=== PATIENT | male | born 1995 | race Caucasian/White ===

== ENCOUNTER 2024-03-12 18:15 | Emergency (ER) | payer BC, SELFPAY ==
--- NOTE | ~2024-03-12 | CT_ITS ---
CLINICAL INDICATION: Abdominal pain, hernia suspected clinically COMPARISON: None. TECHNIQUE: Multiple contiguous axial images of the abdomen and pelvis were performed following the ad ministration of with 100 mL Omnipaque-350 intravenous contrast The dose-length product (DLP) was 196.63 mGy-cm. Automated exposure control and iterative reconstruction technique were employed. FINDINGS/OBSERVATIONS: Visualized lower thorax: The bilateral lung bases are clear. The heart is of normal size, without pericardial effusion. Liver: Liver enhances homogeneously and is not enlarged measuring 18 cm in longitudinal dimension. Gallbladder and biliary system: The gallbladder is only minimally distended, and otherwise unremarkable. Pancreas: The pancreas enhances homogeneously without ductal dilatation. Spleen: A well-circumscribed focus of fluid attenuation is identified within the anterior body of the spleen measuring 5.1 x 5.3 x 5.3 cm, consistent with a splenic cyst. The remainder of the spleen otherwise enhances homogeneously and is not enlarged measuring 8 cm in lo ngitudinal dimension. Kidneys: The bilateral kidneys enhance symmetrically without hydronephrosis or renal calculi. Adrenal glands: Unremarkable. Gastrointestinal tract: Trace fecal stasis. Appendix: The appendix is not definitively visualized. However, no pericecal inflammatory change is identified suggest the presence of acute appendicitis. Vasculature: Unremarkable. Lymph nodes: No pathologically enlarged or morphologically suspicious lymph nodes within the retroperitoneum or at the root of the mesentery. Pelvic structures: The bladder is minimally distended, and otherwise unremarkable. The prostate gland is not enlarged. Body wall and musculoskeletal: No significant degenerative disease within the lower thoracic or lumbosacral spine. No fascial defect is appreciated on CT examination within the right inguinal region. IMPRESSION: No right inguinal fascial defect to suggest a right inguinal hernia. If clinical suspicion persists and the physical examination is equivocal, nonemergent evaluation with ultrasound is recommended. Splenic cyst, as detailed above. Reviewed, dictated and finalized at location A. ER COVERSTITCH IMPRESSION: No right inguinal fascial defect to suggest a right inguinal hernia. If clinical suspicion persists and the physical examination is equivocal, nonem ergent evaluation with ultrasound is recommended. Splenic cyst, as detailed above.
[2024-03-12 18:18] VITALS: BP 139/87; PULSE 69; RESP 20; TEMP 36.9; O2SAT 99
--- NOTE | 2024-03-12 18:32 | ED.ABDPAIN ---
HPI - Abdominal Pain General Chief Complaint: Abdominal Pain <Jocelyn Moranbailee SENIOR TAX SPECIALIST - Last Filed: 03/13/24 17:43> Stated Complaint: hernia <Jocelyn Morley Daniel SENIOR TAX SPECIALIST - Last Filed: 03/13/24 17:43> Time Seen by Provider: 03/12/24 18:25 <Jocelyn Moranbailee SENIOR TAX SPECIALIST - Last Filed: 03/13/24 17:43> Focused HPI: Patient is a 29-year-old female who presents to the ER with concerns of a hernia. He reports he 1st noticed the lump earlier today. Patient reports it is ?egg-sized. He reports he is able to flex the hernia back in. He denies abdominal pain but endorses right-sided groin pain. Patient reports the pain is between a 5 and 6/10 and is better when he sitting. 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 Patient denies any back pain, urinary symptoms, recent signs/symptoms of infection, constipation. He reports his last bowel movement was earlier today and it was normal for him. Patient GENERAL: Well-appearing, well-nourished, and in no acute distress. HEAD: Normocephalic, atraumatic. CHEST: Clear to auscultation. ?No respiratory distress. HEART: Regular rate and rhythm.? NEURO: ?Alert and oriented x3. Patient screened in triage and initial orders placed.? ?Additional care and disposition to be based upon?diagnostic testing and treatment. <Jocelyn Morley Daniel, SENIOR TAX SPECIALIST - Last Filed: 03/13/24 17:43> Focused HPI: Patient is a 29-year-old female who presents to the ER with concerns of a hernia. He reports he 1st noticed the lump earlier today. Patient reports it is ?egg-sized. He reports he is able to flex the hernia back in. He denies abdominal pain but endorses right-sided groin pain. Patient reports the pain is between a 5 and 6/10 and is better when he sitting. 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 Patient denies any back pain, urinary symptoms, recent signs/symptoms of infection, constipation. He reports his last bowel movement was earlier today and it was normal for him. GENERAL: Well-appearing, well-nourished, and in no acute distress. HEAD: Normocephalic, atraumatic. CHEST: Clear to auscultation. ?No respiratory distress. HEART: Regular rate and rhythm.? NEURO: ?Alert and oriented x3. Patient screened in triage and initial orders placed.? ?Additional care and disposition to be based upon?diagnostic testing and treatment. <Renetta Quintana PA-C - Last Filed: 03/12/24 22:35> Source: patient <Renetta Quintana PA-C - Last Filed: 03/12/24 22:35> Mode of arrival: ambulatory <Renetta Quintana PA-C - Last Filed: 03/12/24 22:35> Limitations: no limitations <CORNELIUS Chauhan Last Filed: 03/12/24 22:35> History of Present Illness HPI narrative: Agree with above HPI. Denies testicular pain or swelling, dysuria, hematuria. <CORNELIUS Chauhan Last Filed: 03/12/24 22:35> Related Data Allergies/Adverse Reactions: Allergies Allergy/AdvReac Type Severity Reaction Status Date / Time No Known Allergies Allergy Verified 03/12/24 18:16 <Jocelyn Sanchez APRN - Last Filed: 03/13/24 17:43> Review of Systems Review of Systems: All systems reviewed & are unremarkable except as noted in HPI. <Renetta Quintana PA-C - Last Filed: 03/12/24 22:35> All systems reviewed & are unremarkable except as noted in HPI and below <Renetta Quintana PA-C - Last Filed: 03/12/24 22:35> Exam Narrative: GENERAL: Well appearing, well-nourished, non-toxic, in no acute distress. HEAD: Normocephalic, atraumatic. RESPIRATORY: Airway patent, respirations nonlabored. CARDIOVASCULAR: Regular rate and rhythm ABDOMINAL: Soft, nontender, nondistended. Normoactive BS. Small finger-length area of skin defect/swelling, consistent with hernia bulge. It is very soft, very easily reducible. No significant tenderness. MUSCULOSKELETAL: Moves all extremities. No gross deformities. SKIN: Warm, dry, normal color. NEURO: A&O X3. Speech clear. PSYCHIATRIC: Appropriate mood and affect. Normal interaction. <Renetta Quintana PA-C - Last Filed: 03/12/24 22:35> Course Vital Signs Vital signs: Vital Signs Temperature 36.9 C 03/12/24 18:18 Pulse Rate 69 03/12/24 18:18 Respiratory Rate 20 03/12/24 18:18 Blood Pressure 139/87 03/12/24 18:18 Pulse Oximetry 99 03/12/24 18:18 Oxygen Delivery Room Air 03/12/24 18:18 Temperature 36.9 C 03/12/24 18:18 Pulse Rate 70 03/12/24 22:05 Respiratory Rate 15 03/12/24 22:05 Blood Pressure 141/77 H 03/12/24 22:05 Pulse Oximetry 100 03/12/24 22:05 Oxygen Delivery Room Air 03/12/24 18:18 <Jocelyn Sanchez, SENIOR TAX SPECIALIST - Last Filed: 03/13/24 17:43> Vital Signs Temperature 36.9 C 03/12/24 18:18 Pulse Rate 69 03/12/24 18:18 Respiratory Rate 20 03/12/24 18:18 Blood Pressure 139/87 03/12/24 18:18 Pulse Oximetry 99 03/12/24 18:18 Oxygen Delivery Room Air 03/12/24 18:18 Temperature 36.9 C 03/12/24 18:18 Pulse Rate 70 03/12/24 22:05 Respiratory Rate 15 03/12/24 22:05 Blood Pressure 141/77 H 03/12/24 22:05 Pulse Oximetry 100 03/12/24 22:05 Oxygen Delivery Room Air 03/12/24 18:18 <Renetta Quintana PA-C - Last Filed: 03/12/24 22:35> MDM - Abdominal Pain MDM Narrative Medical decision making narrative: Exam consistent with R inguinal hernia. Laboratory studies are unremarkable. CT scan without concerning features. No evidence of bowel involvement. Discussed further management of hernia. Discussed signs and symptoms of strangulation/incarceration, strict return precautions. Will refer to General surgery for further evaluation and management for potential elective surgery. Patient in agreement with plan. Declined pain medicine in the ED. Discharged in stable condition. <Renetta Quintana PA-C - Last Filed: 03/12/24 22:35> Medical Records Attestation: I reviewed the patient's medical records. <Renetta Quintana PA-C - Last Filed: 03/12/24 22:35> Lab Data Attestation: I reviewed the patient's lab results. <Renetta Quintana PA-C - Last Filed: 03/12/24 22:35> Result diagrams: 03/12/24 20:50 03/12/24 20:50 <Jocelyn Sanchez, SENIOR TAX SPECIALIST - Last Filed: 03/13/24 17:43> Labs: Lab Results 03/12/24 03/12/24 Range/Units 20:50 20:53 WBC 8.7 (4.5-10.0) K/mm3 RBC 5.45 (4.6-6.20) M/mm3 Hgb 15.9 (14.0-18.0) g/dL Hct 47.2 (42.0-52.0) % MCV 86.6 (80-100) fl MCH 29.2 (26-34) pg MCHC 33.7 (32-36) g/dl RDW 11.7 (11.5-14.5) % Plt Count 236 (150-375) k/mm3 MPV 9.7 (7.4-10.4) fl Immature Gran % (Auto) 0.2 (0-0.5) % Neut % (Auto) 62.8 (45.5-73.1) % Lymph % (Auto) 28.0 (18.3-44.2) % [place] % (Auto) 6.0 (2.6-8.5) % Eos % (Auto) 2.1 (0-4.4) % Baso % (Auto) 0.9 (0.2-1.2) % Lymph # (Auto) 2.44 (0.9-3.2) K/mm3 [place] # (Auto) 0.5 (0.1-0.6) K/mm3 Eos # (Auto) 0.2 (0-0.3) K/mm3 Baso # (Auto) 0.1 (0.0-0.1) K/mm3 Abs Immat Gran (auto) 0.02 (0.00-0.031) K/mm3 Absolute Neuts (auto) 5.5 (1.3-6.7) K/mm3 Absolute Nucleated RBC 0.000 (0.0-0.012) K/mm3 Nucleated RBC % 0.0 (0.0-0.2) % Sodium 140 (137-145) mmol/L Potassium 4.2 (3.4-5.0) mmol/L Chloride 102 (98-107) mmol/L Carbon Dioxide 25 (22-30) mmol/L Anion Gap 13 H (4-12) mmol/L BUN 19 (9-20) mg/dL Creatinine 1.02 (0.7-1.3) mg/dL Estim Creat Clear Calc 89 ml/min Estimated GFR > 60 (59 - ) Glucose 90 (65-110) mg/dL Calcium 10.1 (8.4-10.2) mg/dL Total Bilirubin 0.7 (0.2-1.3) mg/dL AST 30 (17-59) U/L ALT 14 (6-50) U/L Alkaline Phosphatase 65 (38-126) U/L Total Protein 9.0 H (6.3-8.2) g/dL Albumin 5.0 (3.5-5.1) g/dL Urine Color Yellow (Yellow) Urine Appearance Clear (Clear) Urine pH 6.5 (5.0-9.0) Ur Specific [place] 1.027 (1.001-1.035) Urine Protein Negative (Negative) mg/dL Urine Glucose (UA) Negative (Negative) mg/dL Urine Ketones Trace H (Negative) mg/dL Ur Blood (Man) Negative (Negative) Urine Nitrate Negative (Negative) Urine Bilirubin Negative (Negative) Urine Urobilinogen 1.0 (<2.0) mg/dL Leukocyte Esterase Rfl Negative (Negative) JUNIOR/UL <Jocelyn Sanchez, SENIOR TAX SPECIALIST - Last Filed: 03/13/24 17:43> Lab Results 03/12/24 03/12/24 Range/Units 20:50 20:53 WBC 8.7 (4.5-10.0) K/mm3 RBC 5.45 (4.6-6.20) M/mm3 Hgb 15.9 (14.0-18.0) g/dL Hct 47.2 (42.0-52.0) % MCV 86.6 (80-100) fl MCH 29.2 (26-34) pg MCHC 33.7 (32-36) g/dl RDW 11.7 (11.5-14.5) % Plt Count 236 (150-375) k/mm3 MPV 9.7 (7.4-10.4) fl Immature Gran % (Auto) 0.2 (0-0.5) % Neut % (Auto) 62.8 (45.5-73.1) % Lymph % (Auto) 28.0 (18.3-44.2) % [place] % (Auto) 6.0 (2.6-8.5) % Eos % (Auto) 2.1 (0-4.4) % Baso % (Auto) 0.9 (0.2-1.2) % Lymph # (Auto) 2.44 (0.9-3.2) K/mm3 [place] # (Auto) 0.5 (0.1-0.6) K/mm3 Eos # (Auto) 0.2 (0-0.3) K/mm3 Baso # (Auto) 0.1 (0.0-0.1) K/mm3 Abs Immat Gran (auto) 0.02 (0.00-0.031) K/mm3 Absolute Neuts (auto) 5.5 (1.3-6.7) K/mm3 Absolute Nucleated RBC 0.000 (0.0-0.012) K/mm3 Nucleated RBC % 0.0 (0.0-0.2) % Sodium 140 (137-145) mmol/L Potassium 4.2 (3.4-5.0) mmol/L Chloride 102 (98-107) mmol/L Carbon Dioxide 25 (22-30) mmol/L Anion Gap 13 H (4-12) mmol/L BUN 19 (9-20) mg/dL Creatinine 1.02 (0.7-1.3) mg/dL Estim Creat Clear Calc 89 ml/min Estimated GFR > 60 (59 - ) Glucose 90 (65-110) mg/dL Calcium 10.1 (8.4-10.2) mg/dL Total Bilirubin 0.7 (0.2-1.3) mg/dL AST 30 (17-59) U/L ALT 14 (6-50) U/L Alkaline Phosphatase 65 (38-126) U/L Total Protein 9.0 H (6.3-8.2) g/dL Albumin 5.0 (3.5-5.1) g/dL Urine Color Yellow (Yellow) Urine Appearance Clear (Clear) Urine pH 6.5 (5.0-9.0) Ur Specific [place] 1.027 (1.001-1.035) Urine Protein Negative (Negative) mg/dL Urine Glucose (UA) Negative (Negative) mg/dL Urine Ketones Trace H (Negative) mg/dL Ur Blood (Man) Negative (Negative) Urine Nitrate Negative (Negative) Urine Bilirubin Negative (Negative) Urine Urobilinogen 1.0 (<2.0) mg/dL Leukocyte Esterase Rfl Negative (Negative) JUNIOR/UL <Renetta Quintana PA-C - Last Filed: 03/12/24 22:35> Imaging Data Attestation: I personally reviewed and interpreted this imaging study as follows: <Renetta Quintana PA-C - Last Filed: 03/12/24 22:35> Radiologist's impression: ITS Impressions Abdomen/Pelvis CT 03/12/24 22:09 IMPRESSION: No right inguinal fascial defect to suggest a right inguinal hernia. If clinical suspicion persists and the physical examination is equivocal, nonemergent evaluation with ultrasound is recommended. Splenic cyst, as detailed above. <Jocelyn Sanchez APRN - Last Filed: 03/13/24 17:43> ITS Impressions Abdomen/Pelvis CT 03/12/24 22:09 IMPRESSION: No right inguinal fascial defect to suggest a right inguinal hernia. If clinical suspicion persists and the physical examination is equivocal, nonemergent evaluation with ultrasound is recommended. Splenic cyst, as detailed above. <Renetta Quintana PA-C - Last Filed: 03/12/24 22:35> Discharge Plan Discharge Clinical Impression: Right inguinal hernia <Jocelyn Sanchez APRN - Last Filed: 03/13/24 17:43> Patient Disposition: Home, Self-Care <Jocelyn Sanchez APRN - Last Filed: 03/13/24 17:43> Condition: Stable <Jocelyn Sanchez APRN - Last Filed: 03/13/24 17:43> Instructions: Antibiotic Form, Inguinal Hernia (ED) <Jocelyn Sanchez APRN - Last Filed: 03/13/24 17:43> Additional Instructions: Your imaging did not show any concerning features. Your symptoms are consistent with an inguinal hernia. Recommend holding pressure to hernia bulge whenever exerting or straining yourself. You may also try a hernia belt. Recommend Tylenol, ibuprofen, ice to bulge if needed for pain. If you feel the area bulging outward, you may gently reduce back inward with light pressure. Recommend follow-up with General surgery for further evaluation and management. Return to the ED if you experience worsening or severe pain, large/firm/red bulge, unable to reduce bulge, testicular pain or swelling, or any other symptoms of concern. <Jocelyn Sanchez APRN - Last Filed: 03/13/24 17:43> Patient Language: Ugandan <Jocelyn Sanchez APRN - Last Filed: 03/13/24 17:43> Follow-up/Referrals: Sreedhar Cartwright MD [Physician] - (GENERAL SURGERY) Parent,MARYLOU Butts [Primary Care Provider] - <Jocelyn Sanchez APRN - Last Filed: 03/13/24 17:43> Time of Disposition: 22:29 <Jocelyn Sanchez APRN - Last Filed: 03/13/24 17:43> 22:29 <Renetta Quintana PA-C - Last Filed: 03/12/24 22:35>
[2024-03-12 21:02] LABS: Basophils Absolute Auto 0.1 K/mm3 (0.0-0.1); Basophils Percent Auto 0.9 % (0.2-1.2); Eosinophils Absolute Auto 0.2 K/mm3 (0-0.3); Eosinophils Percent Auto 2.1 % (0-4.4); Hematocrit 47.2 % (42.0-52.0); Hemoglobin 15.9 g/dL (14.0-18.0); Immature Granulocyte Absolute 0.02 K/mm3 (0.00-0.031); Immature Granulocyte Percent A 0.2 % (0-0.5); Lymphocytes Absolute Auto 2.44 K/mm3 (0.9-3.2); Mean Corpuscular HGB Conc 33.7 g/dl (32-36); Mean Corpuscular Hemoglobin 29.2 pg (26-34); Mean Corpuscular Volume 86.6 fl (80-100); Mean Platelet Volume 9.7 fl (7.4-10.4); Monocytes Absolute Auto 0.5 K/mm3 (0.1-0.6); Neutrophils Absolute Auto 5.5 K/mm3 (1.3-6.7); Neutrophils Percent Auto 62.8 % (45.5-73.1); Platelet Count Result 236 k/mm3 (150-375); Red Blood Count 5.45 M/mm3 (4.6-6.20); Red Cell Distribution Width 11.7 % (11.5-14.5); White Blood Count 8.7 K/mm3 (4.5-10.0)
[2024-03-12 21:03] LABS: Add Urine Microscopic? NO; Appearance Urine Clear (Clear); Bilirubin Urine Negative (Negative); Blood Urine Negative (Negative); Color Urine Yellow (Yellow); Glucose Urine UA Negative (Negative); Ketones Urine Trace mg/dL (Negative); Leukocyte Esterase Ur Negative LEU/UL (Negative); Nitrate Urine Negative (Negative); Protein Urine Negative (Negative); Specific Grav Ur 1.027 (1.001-1.035); pH Urine 6.5 (5.0-9.0)
[2024-03-12 21:09] LABS: Alanine Aminotransferase 14 U/L (6-50); Alkaline Phosphatase 65 U/L (38-126); Anion Gap 13 mmol/L (4-12); Aspartate Amino Transferase 30 U/L (17-59); Bilirubin,Total 0.7 mg/dL (0.2-1.3); Blood Urea Nitrogen 19 mg/dL (9-20); Calcium 10.1 mg/dL (8.4-10.2); Carbon Dioxide 25 mmol/L (22-30); Chloride 102 mmol/L (98-107); Estimated CRCL calculation 89 ml/min; Estimated Glomerular Filt Rate > 60; Glucose 90 mg/dL (65-110); Potassium 4.2 mmol/L (3.4-5.0); Sodium 140 mmol/L (137-145)
[2024-03-12 22:05] VITALS: BP 141/77; PULSE 70; RESP 15; O2SAT 100
== END 2024-03-12 22:38 | disposition home or self-care (01) ==
PROVIDERS: Registered Nurse; Emergency Provider Physician Assistant; PCP Physician Assistant
DX: K40.90 Unilateral inguinal hernia, without obstruction or gangrene, not specified as recurrent (principal); D73.4 Cyst of spleen
CPT/HCPCS: 36415; 74177; 80053; 81003; 85025; 96372; 99284; J1885; Q9967